=== PATIENT | female | born 1975 | race Asian ===

== ENCOUNTER 2016-09-15 18:48 | Emergency (ER) | payer OTHER ==
[~2016-09-15] VITALS: Ht 157.5 cm; Wt 49.0 kg
[~2016-09-15 18:48] MED LIST: DOCUSATE SODIU100 MG PO; IBUPROFEN600 M1 PO; IBUPROFEN800 MG PO; LOPRESSOR50 MG PO; MASON NATURAL325 MG PO; PERCOCET 325 MG1 TA2 PO
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
[2016-09-15] MEDS ORDERED: CYCLOBENZAPRINE5 M2 PO (20:47)
[2016-09-15] MEDS ORDERED: MELOXICAM7.5 M1 PO (20:47)
[2016-09-15 20:50] VITALS: BP 108/58
== END 2016-09-15 20:53 ==
LOC: ERH 18:48
DX: S16.1XXA Strain of muscle, fascia and tendon at neck level, initial encounter (principal); V49.40XA Driver injured in collision with unspecified motor vehicles in traffic accident, initial encounter